=== PATIENT | male | born 1965 | race Caucasian/White ===

== ENCOUNTER 2018-11-17 14:13 | Outpatient (REF) | payer BC, SELFPAY ==
--- NOTE | 2018-11-17 13:35 | SKI_PTH ---
PATIENT: Rubén Bah LOC: [facility] U#:[id number] AGE/SX: 53/M ROOM: RE11/17/[address]: Muriel Hernandez MD : 1965 BED: DIS: 11/17/2018 SPEC #: [id number] RECD: 11/17/18 17:59 STATUS: LOWELL REQ #: [id number] PATRICK: 11/17/18 13:[address]: Muriel Hernandez DEPT: Surgical Specimen RECD BY: Melania Mendez ENTERED: 11/17/18 18:00 SP TYPE: SKI OTHR DR: Antoinette Cardenas Tissues: 1 - SKIN BIOPSY(SHAVE/PUNCH) Procedures: SKIN LEVEL 4 Comments: [id number]
== END 2018-11-17 14:33 ==
LOC: LBN 14:13
PROVIDERS: PCP Nurse Practitioner Family; Visit Provider Surgery
DX: D18.01 Hemangioma of skin and subcutaneous tissue (principal)
CPT/HCPCS: 88305

== ENCOUNTER 2019-10-28 12:42 | Outpatient (REF) | payer BC, SELFPAY ==
[2019-10-28 20:41] LABS: Anion Gap 9.1 mmol/L (3-11); BUN 16 mg/dL (7-18); CO2 26.9 mmol/L (21.0-32.0); CREATININE 1.11 mg/dL (0.70-1.30); Calcium 9.4 mg/dL (8.5-10.1); Chloride 104 mmol/L (98-107); Glucose 99 mg/dL (74-106); Magnesium 1.9 mg/dL (1.8-2.4); Potassium 4.6 mmol/L (3.5-5.1); Sodium 140 mmol/L (136-145)
== END 2019-10-28 13:02 ==
LOC: NCHCN 12:42
PROVIDERS: PCP Nurse Practitioner Family; Visit Provider Internal Medicine
DX: I10 Essential (primary) hypertension (principal); M25.522 Pain in left elbow; E66.9 Obesity, unspecified
CPT/HCPCS: 80048; 83735

== ENCOUNTER 2020-08-22 18:46 | Outpatient (REF) | payer BC, SELFPAY ==
[2020-08-22 13:41] LABS: Anion Gap 9.2 mmol/L (3-11); BUN 17 mg/dL (7-18); CO2 26.8 mmol/L (21.0-32.0); Calcium 9.4 mg/dL (8.5-10.1); Calculated LDL 126 mg/dL (<100); Chloride 105 mmol/L (98-107); Cholesterol 216 mg/dL (<200); Glucose 96 mg/dL (74-106); HDL Cholesterol 49 mg/dL (40-60); Potassium 5.1 mmol/L (3.5-5.1); Sodium 141 mmol/L (136-145); Triglyceride 207 mg/dL (<150)
== END 2020-08-22 18:47 | disposition home or self-care (01) ==
LOC: NCHCN 18:46
PROVIDERS: PCP Nurse Practitioner Family; Visit Provider Internal Medicine
DX: I10 Essential (primary) hypertension (principal); E78.5 Hyperlipidemia, unspecified; E66.9 Obesity, unspecified
CPT/HCPCS: 80048; 80061

== ENCOUNTER 2021-08-24 18:41 | Outpatient (REF) | payer BC, SELFPAY ==
[2021-08-24 20:34] LABS: Anion Gap 5.8 mmol/L (3-11); BUN 16 mg/dL (7-18); CO2 29.2 mmol/L (21.0-32.0); Chloride 101 mmol/L (98-107); Glucose 93 mg/dL (74-106); Sodium 136 mmol/L (136-145)
== END 2021-08-24 18:42 | disposition home or self-care (01) ==
LOC: NCHCN 18:41
PROVIDERS: PCP Nurse Practitioner Family; Visit Provider Family Medicine
DX: Z00.00 Encounter for general adult medical examination without abnormal findings (principal); I10 Essential (primary) hypertension; E78.5 Hyperlipidemia, unspecified; E66.9 Obesity, unspecified
CPT/HCPCS: 80048

== ENCOUNTER 2022-08-29 17:48 | Outpatient (REF) | payer BC, SELFPAY ==
[2022-08-29 20:39] LABS: HCT 44.7 % (40.0-50.0); MCH 31.1 pg (27.0-33.0); MCHC 33.6 % (32.0-36.0); MCV 93 fL (80-95); Platelet Count 304 10^3/uL (130-400); RBC 4.83 10^6/uL (4.36-5.78); RDW 12.2 % (11.8-14.1); RDW-SD 41.7 fL; WBC 7.63 10^3/uL (4.4-10.8)
[2022-08-29 20:45] LABS: Anion Gap 8.1 mmol/L (3-11); BUN 13 mg/dL (7-18); CO2 27.9 mmol/L (21.0-32.0); CREATININE 0.9 mg/dL (0.70-1.30); Calcium 8.7 mg/dL (8.5-10.1); Chloride 102 mmol/L (98-107); Estimated GFR 98.38 (mL/min/1.73m2); Glucose 113 mg/dL (74-106); Potassium 4.5 mmol/L (3.5-5.1); Sodium 138 mmol/L (136-145)
[2022-08-29 21:01] LABS: Hemoglobin A1C 5.4 % (<5.7)
[2022-08-30 21:53] LABS: PSA, Screening 0.6 ng/mL (<=3.5)
== END 2022-08-29 17:49 | disposition home or self-care (01) ==
LOC: NCHCN 17:48
PROVIDERS: PCP Nurse Practitioner Family; Visit Provider Family Medicine
DX: Z00.00 Encounter for general adult medical examination without abnormal findings (principal)
CPT/HCPCS: 80048; 84153; 85027; 83036

== ENCOUNTER 2023-09-01 14:40 | Outpatient (REF) | payer BC, SELFPAY ==
[2023-09-01 14:32] LABS: Abs Immature Grans 0.03 10^3/uL (0.0-0.06); Absolute Basophil Count 0.07 10^3/uL (0.0-0.2); Absolute Eosinophil Count 0.32 10^3/uL (0.0-0.7); Absolute Lymphocyte Count 1.97 10^3/uL (1.2-3.4); Absolute Neutrophil Count 3.31 10^3/uL (1.2-6.7); Basophils % 1.1; Eosinophils % 5.2; HCT 45.1 % (40.0-50.0); HGB 15.3 g/dL (13.5-17.5); Immature Grans % 0.5; Lymphocytes % 31.8; MCH 31.5 pg (27.0-33.0); MCHC 33.9 % (32.0-36.0); MCV 93 fL (80-95); Monocytes % 8.1; Neutrophils % 53.3; Platelet Count 296 10^3/uL (130-400); RBC 4.85 10^6/uL (4.36-5.78); RDW 12.8 % (11.8-14.1); RDW-SD 43.8 fL
[2023-09-01 15:13] LABS: ALT 40 U/L (16-63); AST 16 U/L (15-37); Alkaline Phosphatase 66 U/L (46-116); Anion Gap 7.1 mmol/L (3-11); BUN 13 mg/dL (7-18); Bilirubin, Total 0.5 mg/dL (0.2-1.0); CO2 28.9 mmol/L (21.0-32.0); Calcium 9.1 mg/dL (8.5-10.1); Chloride 103 mmol/L (98-107); Estimated GFR 86.16 (mL/min/1.73m2); Glucose 98 mg/dL (74-106); Potassium 4.9 mmol/L (3.5-5.1); Sodium 139 mmol/L (136-145); Total Protein 6.8 g/dL (6.4-8.2)
== END 2023-09-01 14:41 | disposition home or self-care (01) ==
LOC: NCHCN 14:40
PROVIDERS: Family Medicine; PCP Nurse Practitioner Family; Visit Provider Nurse Practitioner Family
DX: I10 Essential (primary) hypertension (principal)
CPT/HCPCS: 80053; 85025

== ENCOUNTER 2024-11-01 17:01 | Outpatient (REF) | payer BC, SELFPAY ==
[2024-11-01 18:27] LABS: Anion Gap 6.6 mmol/L (3-11); BUN 16 mg/dL (7-18); CO2 31.4 mmol/L (21.0-32.0); Calcium 9.5 mg/dL (8.5-10.1); Chloride 100 mmol/L (98-107); Estimated GFR 85.63 (mL/min/1.73m2); Glucose 105 mg/dL (74-106); Potassium 5.5 mmol/L (3.5-5.1); Sodium 138 mmol/L (136-145)
== END 2024-11-01 17:02 | disposition home or self-care (01) ==
LOC: NCHCN 17:01
PROVIDERS: PCP Nurse Practitioner Family; Visit Provider Family Medicine
DX: I10 Essential (primary) hypertension (principal)
CPT/HCPCS: 80048

== ENCOUNTER 2024-11-09 15:14 | Outpatient (REF) | payer BC, SELFPAY ==
[2024-11-09 16:25] LABS: Anion Gap 7.6 mmol/L (3-11); BUN 15 mg/dL (7-18); CO2 30.4 mmol/L (21.0-32.0); Calcium 9.0 mg/dL (8.5-10.1); Chloride 100 mmol/L (98-107); Estimated GFR 100.69 (mL/min/1.73m2); Glucose 85 mg/dL (74-106); Potassium 4.8 mmol/L (3.5-5.1); Sodium 138 mmol/L (136-145)
== END 2024-11-09 15:15 | disposition home or self-care (01) ==
LOC: NCHCN 15:14
PROVIDERS: PCP Nurse Practitioner Family; Visit Provider Family Medicine
DX: I10 Essential (primary) hypertension (principal)
CPT/HCPCS: 80048